=== PATIENT | female | born 1990 | race Caucasian/White ===

== ENCOUNTER 2017-08-21 21:25 | Emergency (ER) | payer OTHER ==
[~2017-08-21] VITALS: Ht 152.4 cm; Wt 63.5 kg
[2017-08-21 21:30] VITALS: BP 100/56
--- NOTE | 2017-08-21 21:37 | NUR ---
PT TAKEN TO BED 8
[2017-08-21 21:43] VITALS: BP 100/56
--- NOTE | 2017-08-21 21:45 | NUR ---
PATIENT PRESENTS TO ED WITH C/O LEFT GREAT TOE PAIN PT DENIES N/V/D; SKIN IS PINK/WARM/DRY; AAOX4 WITH EVEN AND STEADY GAIT; LUNGS CLEAR BL; HR EVEN AND REGULAR; PT DENIES ANY FEVER, CP, SOB, OR COUGH AT THIS TIME; PATIENT STATES PAIN OF 5/10 AT THIS TIME; VSS; PATIENT POSITIONED FOR COMFORT; HOB ELEVATED; BEDRAILS UP X2; BED DOWN. ER MD MADE AWARE OF PT STATUS.
--- NOTE | 2017-08-21 21:56 | NUR ---
Dr. Kenney evaluating patient at bedside.
== END 2017-08-21 22:15 | disposition home or self-care (01) ==
LOC: MED 21:25
DX: S93.502A Unspecified sprain of left great toe, initial encounter (principal); W22.8XXA Striking against or struck by other objects, initial encounter; Y93.89 Activity, other specified; Y92.89 Other specified places as the place of occurrence of the external cause; Y99.8 Other external cause status
CPT/HCPCS: 73660; 99284; Q0092